=== PATIENT | female | born 1990 | race African-American/Black ===

== ENCOUNTER 2022-03-06 22:27 | Inpatient (IN) ==
[2022-03-06 23:58] LABS: Basophils % 0.2 % (0.0-0.8); Eosinophils # 0.1 10*3/uL (0.0-0.87); Eosinophils % 0.6 % (0.00-10.9); Hematocrit 34.4 VOL% (35.7-47.0); Hemoglobin 11.2 GM/DL (12.0-16.0); Immature Granulocytes % 0.2 %; Immature Granulocytes Absolute 0.02 #; Lymphocytes # 1.7 10*3/uL (1.4-4.0); Lymphocytes % 20.5 % (21.3-54.2); Mean Corpuscular HGB Conc 32.6 GM/DL (32-36); Mean Corpuscular Volume 93.5 FL (87-102); Monocytes % 11.7 % (1.7-12.7); Neutrophils % 66.8 % (38.7-73.9); Platelet Count 244 T/CUMM (130-400); Red Blood Count 3.68 MC/CUMM (3.8-5.5); Red Cell Distribution Width 13.3 % (9.3-17.3); White Blood Count 8.1 T/CUMM (4-12)
[2022-03-07 00:17] LABS: Urine Appearance Clear (Clear); Urine Color Dark Yellow (Yellow); Urine Specific Gravity >= 1.030 (1.001-1.035)
[2022-03-07 00:17] LABS: Albumin 2.8 G/DL (3.4-5.0); Bilirubin,Total 6.8 MG/DL (0.20-1.00); Osmolality,Calculated 270.7 MOS/KG (273-304); Potassium 3.5 MMOL/L (3.5-5.1); Total Protein 7.3 G/DL (6.4-8.2)
[2022-03-07 00:18] LABS: Bilirubin,Urine Large mg/dL (Negative); Blood, Urine Negative (Negative); Glucose,Urine (UA) 100 mg/dL (Negative); Ketones,Urine >=160 mg/dL (Negative); Nitrite,Urine Negative (Negative); Protein,Urine 100 mg/dL (Negative)
[2022-03-07 00:20] LABS: Mucus,Urine Many /LPF (Occasional); Squamous Epithelial Cell,Urine Occasional /HPF (0-10)
[2022-03-07] MEDS ORDERED: LACTATED RINGERS 1,000 ML IV ONE (00:29)
[2022-03-07] MEDS ORDERED: PIPERACILLIN/TAZOBACTAM 3,375 MG in SODIUM CHLORIDE 0.9% 100 ML IV STA (00:34)
[2022-03-07] MEDS ORDERED: ONDANSETRON 4 MG/2 ML VIAL IV ONE (00:40)
[2022-03-07] MEDS ORDERED: HYDROmorphone 1 MG/1 ML SYRINGE IV STA (00:40)
[2022-03-07] MEDS ORDERED: ACETAMINOPHEN 325 MG TABLET PO PRN (00:46)
[2022-03-07] MEDS ORDERED: ONDANSETRON 4 MG/2 ML VIAL IV PRN (00:46)
[2022-03-07] MEDS: LACTATED RINGERS 1,000 ML IV SCH ×2 (02:57→21:56)
[2022-03-07] MEDS: HYDROmorphone 1 MG/1 ML SYRINGE IV PRN (04:38)
[2022-03-07 05:31] LABS: Basophils % 0.4 % (0.0-0.8); Eosinophils # 0.1 10*3/uL (0.0-0.87); Eosinophils % 0.6 % (0.00-10.9); Hematocrit 31.9 VOL% (35.7-47.0); Hemoglobin 10.4 GM/DL (12.0-16.0); Immature Granulocytes % 0.2 %; Immature Granulocytes Absolute 0.02 #; Lymphocytes # 1.7 10*3/uL (1.4-4.0); Lymphocytes % 19.7 % (21.3-54.2); Mean Corpuscular HGB Conc 32.6 GM/DL (32-36); Mean Corpuscular Volume 93.8 FL (87-102); Mean Platelet Volume 11.4 FL (9.6-12.0); Monocytes % 11.8 % (1.7-12.7); Neutrophils % 67.3 % (38.7-73.9); Platelet Count 228 T/CUMM (130-400); Red Cell Distribution Width 13.5 % (9.3-17.3); White Blood Count 8.4 T/CUMM (4-12)
[2022-03-07] MEDS: PIPERACILLIN/TAZOBACTAM 3,375 MG in SODIUM CHLORIDE 0.9% 100 ML IV SCH ×2 (08:57→18:23)
[2022-03-07] MEDS ORDERED: LEVOTHYROXINE 175 MCG TABLET PO SCH (09:00)
[2022-03-07] MEDS ORDERED: PANTOPRAZOLE 40 MG TABLET PO SCH (09:00)
[2022-03-08] MEDS: PIPERACILLIN/TAZOBACTAM 3,375 MG in SODIUM CHLORIDE 0.9% 100 ML IV SCH ×3 (00:40→21:09)
[2022-03-08] MEDS ORDERED: diphenhydrAMINE CAP 25 MG CAPSULE PO PRN (00:46)
[2022-03-08 05:07] LABS: Basophils % 0.3 % (0.0-0.8); Eosinophils # 0.1 10*3/uL (0.0-0.87); Eosinophils % 1.3 % (0.00-10.9); Hematocrit 30.5 VOL% (35.7-47.0); Hemoglobin 9.9 GM/DL (12.0-16.0); Immature Granulocytes % 0.3 %; Immature Granulocytes Absolute 0.02 #; Lymphocytes # 2.1 10*3/uL (1.4-4.0); Lymphocytes % 28.1 % (21.3-54.2); Mean Corpuscular HGB Conc 32.5 GM/DL (32-36); Mean Corpuscular Volume 92.7 FL (87-102); Mean Platelet Volume 10.9 FL (9.6-12.0); Monocytes # 0.8 10*3/uL (0.11-0.8); Monocytes % 10.5 % (1.7-12.7); Neutrophils % 59.5 % (38.7-73.9); Platelet Count 231 T/CUMM (130-400); Red Blood Count 3.29 MC/CUMM (3.8-5.5); Red Cell Distribution Width 13.7 % (9.3-17.3); White Blood Count 7.5 T/CUMM (4-12)
[2022-03-08 05:36] LABS: Albumin 2.1 G/DL (3.4-5.0); Bilirubin,Total 3.6 MG/DL (0.20-1.00); Calcium 8.6 MG/DL (8.5-10.1); Osmolality,Calculated 272.5 MOS/KG (273-304); Potassium 3.7 MMOL/L (3.5-5.1); Total Protein 6.4 G/DL (6.4-8.2)
[2022-03-08 05:47] LABS: Thyroid Stimulating Hormone 0.858 uIU/ml (0.358-3.74)
[2022-03-08] MEDS ORDERED: INDOMETHACIN SUPP 50 MG SUPP RECTAL ONE (06:27)
[2022-03-08] MEDS ORDERED: LACTATED RINGERS 1,000 ML IV SCH (07:00)
[2022-03-08 07:07] LABS: INR 1.1; PT Patient Result 11.7 SECS (10.1-12.1)
[2022-03-08] MEDS ORDERED: GLYCOPYRROLATE 0.4 MG/2 ML VIAL ONE (12:23)
[2022-03-08] MEDS ORDERED: PHENYLEPHRINE 1 MG/10 ML SYRINGE IV ONE (12:47)
[2022-03-08] MEDS ORDERED: SEVOFLURANE 1 UNIT/15 MINUTE INH ONE (13:06)
[2022-03-08] MEDS ORDERED: LIDOCAINE 2% 5 ML VIAL ONE (13:06)
[2022-03-08] MEDS ORDERED: propofoL 200 MG/20 ML VIAL IV ONE (13:06)
[2022-03-08] MEDS ORDERED: SUCCINYLCHOLINE 200 MG/10 ML VIAL ONE (13:06)
[2022-03-08] MEDS: LEVOTHYROXINE 175 MCG TABLET PO SCH (14:18)
[2022-03-08] MEDS: PANTOPRAZOLE 40 MG VIAL IV SCH (14:35)
[2022-03-08] MEDS: LACTATED RINGERS 1,000 ML IV SCH ×2 (22:39→22:40)
[2022-03-09] MEDS: HYDROmorphone 1 MG/1 ML SYRINGE IV PRN ×6 (03:21→21:42)
[2022-03-09] MEDS: LEVOTHYROXINE 175 MCG TABLET PO SCH (05:49)
[2022-03-09] MEDS: PIPERACILLIN/TAZOBACTAM 3,375 MG in SODIUM CHLORIDE 0.9% 100 ML IV SCH ×3 (05:50→21:12)
[2022-03-09 05:52] LABS: Basophils % 0.4 % (0.0-0.8); Eosinophils # 0.2 10*3/uL (0.0-0.87); Eosinophils % 2.1 % (0.00-10.9); Hematocrit 29.9 VOL% (35.7-47.0); Hemoglobin 9.6 GM/DL (12.0-16.0); Immature Granulocytes % 0.3 %; Immature Granulocytes Absolute 0.02 #; Lymphocytes # 2.3 10*3/uL (1.4-4.0); Lymphocytes % 32.5 % (21.3-54.2); Mean Corpuscular HGB Conc 32.1 GM/DL (32-36); Mean Corpuscular Volume 94.9 FL (87-102); Mean Platelet Volume 11.7 FL (9.6-12.0); Monocytes # 0.7 10*3/uL (0.11-0.8); Monocytes % 10.1 % (1.7-12.7); Neutrophils % 54.6 % (38.7-73.9); Platelet Count 216 T/CUMM (130-400); Red Blood Count 3.15 MC/CUMM (3.8-5.5)
[2022-03-09 06:10] LABS: Albumin 2.2 G/DL (3.4-5.0); Bilirubin,Total 2.1 MG/DL (0.20-1.00); Calcium 8.9 MG/DL (8.5-10.1); Osmolality,Calculated 272.5 MOS/KG (273-304); Potassium 3.8 MMOL/L (3.5-5.1); Total Protein 6.3 G/DL (6.4-8.2)
[2022-03-09] MEDS: LACTATED RINGERS 1,000 ML IV SCH ×3 (06:20→10:42)
[2022-03-09] MEDS: PANTOPRAZOLE 40 MG VIAL IV SCH (10:49)
[2022-03-09] MEDS ORDERED: ROCURONIUM 50 MG/5 ML VIAL IV ONE ×2 (12:34→16:59)
[2022-03-09] MEDS ORDERED: propofoL 200 MG/20 ML VIAL IV ONE ×2 (12:34→16:36)
[2022-03-09] MEDS ORDERED: MIDAZOLAM 2 MG/2 ML VIAL ONE (12:34)
[2022-03-09] MEDS ORDERED: LIDOCAINE 2% 5 ML VIAL ONE (12:34)
[2022-03-09] MEDS ORDERED: fentaNYL 100 MCG/2 ML VIAL ONE ×3 (12:35→17:40)
[2022-03-09] MEDS ORDERED: SUCCINYLCHOLINE 200 MG/10 ML VIAL ONE (12:35)
[2022-03-09] MEDS ORDERED: BUPIVACAINE MPF 0.25% 10 ML VIAL ONE (12:39)
[2022-03-09] MEDS ORDERED: LIDOCAINE 1%/EPI INJ 20 ML VIAL ONE (12:39)
[2022-03-09] MEDS ORDERED: TISSUE ADHESIVE 1 EACH APPLICATOR TOP ONE (12:39)
[2022-03-09] MEDS ORDERED: ONDANSETRON 4 MG/2 ML VIAL ONE (15:28)
[2022-03-09] MEDS ORDERED: DEXAMETHASONE 4 MG/1 ML VIAL ONE (15:28)
[2022-03-09] MEDS ORDERED: LACTATED RINGERS 1,000 ML IV ONE ×2 (15:35→16:45)
[2022-03-09] MEDS ORDERED: PHENYLEPHRINE 1 MG/10 ML SYRINGE IV ONE (15:35)
[2022-03-09] MEDS ORDERED: ceFAZolin 1,000 MG VIAL ONE (15:39)
[2022-03-09] MEDS ORDERED: SEVOFLURANE 1 UNIT/15 MINUTE INH ONE (15:48)
[2022-03-09] MEDS ORDERED: SUGAMMADEX 200 MG/2 ML VIAL IV ONE (15:48)
[2022-03-09] MEDS ORDERED: ONDANSETRON 4 MG/2 ML VIAL IV PRN (18:01)
[2022-03-09] MEDS ORDERED: MEPERIDINE 50 MG/1 ML VIAL ONE (18:39)
[2022-03-09] MEDS ORDERED: CLINDAMYCIN INJ 600 MG/50 ML PREMIX IV ONE (18:58)
[2022-03-10] MEDS: HYDROmorphone 1 MG/1 ML SYRINGE IV PRN ×2 (02:05→07:22)
[2022-03-10] MEDS: LACTATED RINGERS 1,000 ML IV SCH ×4 (03:22→12:20)
[2022-03-10] MEDS: PIPERACILLIN/TAZOBACTAM 3,375 MG in SODIUM CHLORIDE 0.9% 100 ML IV SCH ×2 (05:43→14:34)
[2022-03-10] MEDS: LEVOTHYROXINE 175 MCG TABLET PO SCH (05:44)
[2022-03-10 05:58] LABS: Basophils % 0.1 % (0.0-0.8); Hematocrit 31.8 VOL% (35.7-47.0); Hemoglobin 10.2 GM/DL (12.0-16.0); Immature Granulocytes % 0.5 %; Immature Granulocytes Absolute 0.08 #; Lymphocytes # 1.2 10*3/uL (1.4-4.0); Mean Corpuscular HGB Conc 32.1 GM/DL (32-36); Mean Corpuscular Volume 95.5 FL (87-102); Mean Platelet Volume 11.5 FL (9.6-12.0); Monocytes # 1.1 10*3/uL (0.11-0.8); Monocytes % 6.2 % (1.7-12.7); Neutrophils % 86.2 % (38.7-73.9); Platelet Count 245 T/CUMM (130-400); Red Blood Count 3.33 MC/CUMM (3.8-5.5); Red Cell Distribution Width 13.8 % (9.3-17.3); White Blood Count 17.7 T/CUMM (4-12)
[2022-03-10] MEDS: PANTOPRAZOLE 40 MG VIAL IV SCH (08:23)
[2022-03-10 08:59] LABS: Albumin 2.2 G/DL (3.4-5.0); Bilirubin,Total 1.7 MG/DL (0.20-1.00); Potassium 3.9 MMOL/L (3.5-5.1); Total Protein 6.8 G/DL (6.4-8.2)
[2022-03-10 12:18] VITALS: BP 113/72
== END 2022-03-10 14:32 | disposition home or self-care (01) | DRG 418 ==
LOC: N.ED 22:27 → N.3E 03-07 00:46
PROVIDERS: ADMIT Surgery; ATTEND Surgery
PROC: ERCPWSP (ICD-10-PCS; 2022-03-08 13:35)
PROC: LAPCHOL (2022-03-09 15:16)